=== PATIENT | female | born 2000 | race Caucasian/White ===

== ENCOUNTER 2024-08-27 03:10 | Day surgery (SDC) | payer OTHER, BC, SELFPAY ==
[2024-08-15 11:04] VITALS: BMI 32.6
--- NOTE | 2024-08-15 11:05 | PCDIET ---
Report to the Outpatient Waiting Room, entrance under the green pavilion located off [facility], at time _1030_ on date _08-27-2024_. Planned Procedure Time: _1230_.? Time changes happen often and if your time is changed the preop area will call you the afternoon before. - You and your visitor will be asked to self-screen and do not enter if you have any COVID symptoms. Please call surgeon if you need to reschedule. - A mask is optional within the hospital at this time. May have clear liquids (water, carbonated beverages, clear teas, apple juice) until 430am with a maximum of 20 ounces. Nothing to drink after 430am - No food from midnight until time of surgery and no smoking. This includes no chewing gum, candy or mints. Take only the following medications with a SIP of water on the morning of surgery: ____Lamotrigine and Buspirone DO NOT STOP ANY OF YOUR OTHER PRESCRIPTION MEDICATIONS PRIOR TO SURGERY EXCEPT THE FOLLOWING Medications to discontinue per physician __Probiotic Date to take last xqpl___[id number]____ Please no make-up, nail macedonian, hairspray, perfume, deodorant, or body powder the day of surgery.? No jewelry (including any body piercings) or valuables the day of surgery, leave them at home.? Please take a shower or bath the night before, or the morning of, surgery with an antibacterial soap.? Wear comfortable, loose fitting clothing.? - Jewelry must be removed prior to entering the operating room.? Rings and piercings that are not removed may be cut off. - The hospital will not accept responsibility for valuables.? - Please leave all valuables, including medications, at home the day of surgery. If you are going home after surgery, a licensed wagon driver must drive you home.? - NO public transportation without another adult if you receive anesthesia. - We recommend that an adult stay with you for 24 hours following discharge. - We also recommend that you do not drive, make important decision, drink alcoholic beverages, or take any drugs that were not prescribed by your health care provider for at least 24 hours after your discharge time. Follow any additional instructions given to you from your surgeon. Telephone instructions given to _Liz__and asked if any additional questions and then verbalized understanding. Patient advised to call surgeon office or pre surgery nurse liaison [phone] if any additional questions.
[2024-08-27] VITALS (12 sets, daily range): BP systolic 115–149; BP diastolic 74–97; PULSE 106–143; RESP 12–20; TEMP 36.2–36.5; O2SAT 97–100; BMI 33.0
--- NOTE | 2024-08-27 07:04 | P.HPUP_ITS ---
History and Physical Update Update Date/Time: 08/27/24 07:04 Patient seen and examined in pre-operative holding area. No interval change in medical history or symptoms. Patient remembers previous discussion of benefits and alternatives to procedure. Continues to desire to proceed with bilateral breast reduction . I reviewed the risks including but not limited to bleeding ,infection, asymmetry, undesireable cosmetic appearance, partial/total skin/nipple loss, no change or worsening of symptoms, change in sensation. I discussed the possible use of assistants and their level of participation in the case. Patient stated understanding and signed the consent form wishing to pr oceed
--- NOTE | 2024-08-27 07:04 | P.OP_ITS ---
Procedure Note - Detailed Date of Procedure 08/27/24 Pre-op Diagnosis hypertrophy of bilateral breasts Post-op Diagnosis Same Procedure Performed b/l breast reduction Surgeon Sandie James MD Premises Technician Elza Busby PA-C Anesthesia General Description of Procedure Patient was seen in the preoperative holding area where the breasts were marked for an inferior pedicle Gonzalez pattern reduction and a consent form was signed. Patient was taken back to the operating room and placed on the table in the supine position. Time-out was performed with Anesthesia, surgeon, and staff agreeing on patient's name, site, and surgery to be performed. SCDs were placed on the lower extremities and inflated. Antibiotics were given IV. After general anesthesia was administered the breasts were prepped and draped in the usual sterile fashion. I turned my attention 1st to the right breast where I used a saline moistened lap pad and Malik clamp to create a breast tourniquet. 38 mm nipple Sizer was used to circumscribe the nipple-areolar complex and then I proceeded with de epithelializing a 7 cm wide inferior pedicle. I made my other skin incisions through skin and dermis with a 15 blade scalpel. Bovie cautery was then used to elevate my superior skin flaps and Bonifacio's plane down to the chest wall. I proceeded with resection of 954 g of tissue from the right breast. I irrigated with normal saline and hemostasis with Bovie cautery. I plicated the pedicle with 2-0 Vicryl suture. 2-0 Prolene was used to secure the T-junction. 3-0 Vicryl was used for dermis. Nipple was brought out 5-1/2 cm above the inframammary fold most prominent portion of the breast the breast midline and secured with 3-0 Vicryl suture. 4-0 Monocryl was used for subcuticular closure. The skin flaps and nipple appeared viable with good cap refill. I took my attention the left breast were similar procedure was performed using the breast tourniquet 38 mm nipple Sizer and de epithelializing a 7 cm wide inferior pedicle. I made my the skin incisions and elevated skin flaps to compress plane down to the chest wall exposing the entire breast tissue. Proceed with resection 926 g of tissue from the left breast. This appeared to be reasonably symmetric to the reduced right breast. Irrigated with normal saline. Hemostasis Bovie cautery. I plicated the pedicle with 2-0 Vicryl suture. 2-0 Prolene was used to secure the T-junction. 3-0 Vicryl was used for dermal closure. The nipple was brought out at 5.5 cm above the inframammary fold at the most prominent portion of the breast at the breast midline and secured with 3-0 Vicryl suture. 4-0 Monocryl was used for subcuticular closure. The nipple and skin flaps appeared viable with good cap refill. There was reasonable symmetry between the reduced breast. I injected 20 cc of 1% lidocaine with epinephrine and 0.5% Marcaine plain along the inframammary fold and anterior axillary line of each breast. A dressing of Mastisol, Steri-Strips, 4 x 4, ABDs and a breast binder was then applied. Patient was awakened from anesthesia and transferred to the recovery room in stable condition. Complications: None Estimated blood loss: 60 cc Disposition: Patient tolerated the procedure well and will be going home later today. Elza Busby PA-C was essential for positioning, retraction, resection, hemostasis, closure and dressing placement [facility] [place] Billing Surgery - Charge Forward: Surgery Billing ([id number] same for elza queen )
--- NOTE | 2024-08-27 11:26 | WPDANESEPPF ---
Anes - Initial Pre Proc Eval Procedure: Operation Date: 08/27/24 12:30 Proposed Procedures p Bilateral Breast Reduction - Sandie James MD Date/Time: 08/27/24 11:26 Surgeon: Sandie James MD Pre Op Diagnosis: hypertrophy of bilateral breasts Patient Data Age: 24 Gender: F Height: 1.78 m Weight: 104.3 kg Last Vital Signs Temp 36.5 C 08/27/24 10:58 Pulse 106 H 08/27/24 10:58 BP 115/74 08/27/24 10:58 Pulse Ox 99 08/27/24 10:58 O2 Del Method Room Air 08/27/24 10:58 Allergies Allergy/AdvReac Type Severity Reaction Status Date / Time No Known Allergies Allergy Verified 08/15/24 10:54 Home Medications Medication Instructions Recorded Confirmed Type buspirone 30 mg tablet 30 mg PO BID 06/03/24 08/15/24 History L.acidophil-B.animalis, bifidum, 2 cap PO DAILY 08/15/24 08/15/24 History infantis, long 3 billion cell capsule lamotrigine 100 mg tablet 100 mg PO DAILY 08/15/24 08/15/24 History cephalexin 500 mg capsule 500 mg PO Q8H #21 caps 08/27/24 Rx hydrocodone 5 mg-acetaminophen 325 1 tablet PO Q6H PRN pain #12 tabs 08/27/24 Rx mg tablet Patient hx anesthesia problems: none Family hx anesthesia problems: none Results Review: All pre-operative results and documents have been reviewed as part of the pre-operative evaluation. [facility] Family History Family History Father Diabetes mellitus Hypertension High cholesterol Mother Diabetes mellitus Hypertension Social History Social History Smoking status: Never smoker Alcohol intake: current Substance use: never Living arrangements: with family Spiritual care concerns: No Anes - Eval Final PreProcedure Day of Procedure 08/27/24 11:26 Patient weight: obese Heart: regular rate and rhythm Lungs: clear to auscultation Airway: Mallampati scale class II Neurological: alert and oriented Last oral intake: >/= 8 hours ASA classification: II Emergent: no Anesthetic plan: proceed Anesthesia type and monitoring: general ETT and standard monitoring Results Review: All pre-operative results and documents have been reviewed as part of the pre-operative evaluation. Informed Consent: The patient's anesthetic plan and its attendant risks and benefits were discussed with the patient/family/POA. Questions were solicited and answers provided to the satisfaction of the patient/family/POA.
[2024-08-27] MEDS: LACTATED RINGERS 1,000 ML 30 ML IV CONT ×2 (11:28→14:05)
[2024-08-27] MEDS: LIDO 1%/EPINEPHRINE 1:100,000 50 ML VIAL 30 ML INFILTRATE (11:41)
[2024-08-27] MEDS: BUPivacaine HCL 0.5% PF 30 ML VIAL INFILTRATE (11:41)
[2024-08-27] MEDS: ceFAZolin 2 GM/D5W 50 ML 2 GM/50 ML BAG IVPB (11:41)
[2024-08-27] MEDS: HYDROmorphone HCL INJ (*CRX) 1 MG/ML SYR 0.5 MG IV PUSH ×2 (14:38→14:43)
[2024-08-27] MEDS: ESMOLOL HCL 100 MG/10 ML VIAL 50 MG IV PUSH (14:59)
[2024-08-27] MEDS: LABETALOL HCL INJ 100 MG/20 ML VIAL IV PUSH (15:45)
== END 2024-08-27 17:02 | disposition home or self-care (01) ==
PROVIDERS: PCP Family Medicine; Visit Provider Plastic Surgery
PROC: 0HBV0ZZ Excision of Bilateral Breast, Open Approach (ICD-10-PCS; CPT 19318; principal; 2024-08-27 12:30)
DX: N62 Hypertrophy of breast (principal); E66.9 Obesity, unspecified; Z68.33 Body mass index [BMI] 33.0-33.9, adult; Z79.891 Long term (current) use of opiate analgesic
CPT/HCPCS: 19318; 88305; J0690; J1100; J1171; J1200; J2003; J2004; J2250; J2405; J2704; J3010; J7120